=== PATIENT | male | born 1980 | race Caucasian/White ===

== ENCOUNTER 2022-04-10 05:52 | Emergency (ER) | payer SELFPAY ==
[~2022-04-10] VITALS: Ht 175.2 cm; Wt 83.1 kg
--- NOTE | 2022-04-10 06:11 | ED Cough/URI ---
General Chief Complaint: COVID19 Suspect/Confirmed Stated Complaint: FEVER,COUGH Source: patient Exam Limitations: no limitations History of Present Illness Date Seen by Provider: Apr 10, 2022 Time Seen by Provider: 05:58 Initial Comments 42-year-old male with no pertinent past medical history coming in due to 2 days of cough, sore throat, and fever. Please add a fever just before he came and took 2 Tylenol 20 minutes ago. Denies any chest pain, shortness of breath, abdominal pain, nausea, vomiting, diarrhea, focal weakness or numbness, rash, headache, vision changes, neck stiffness, or any other concerns. Eating and drinking okay. Up-to-date on vaccines, has had a COVID booster. Allergies and Home Medications Allergies Coded Allergies: No Known Drug Allergies (Unverified , 04/10/22) Patient Home Medication List Home Medication List Reviewed: Yes No Active Prescriptions or Reported Meds Review of Systems Review of Systems Constitutional: fever EENTM: nose congestion Respiratory: cough Cardiovascular: No chest pain Gastrointestinal: No abdominal pain Genitourinary: no symptoms reported Musculoskeletal: no symptoms reported Skin: no symptoms reported Psychiatric/Neurological: No Symptoms Reported Hematologic/Lymphatic: No Symptoms Reported Immunological/Allergic: no symptoms reported All Other Systems Reviewed Negative Unless Noted: Yes Past Ttmvxas-Reztbu-Krbhbw Hx Patient Social History Tobacco Use?: Yes Tobacco type used: Cigarettes Past Medical History Surgeries: Yes Orthopedic Physical Exam Vital Signs - First Documented 04/10/22 06:01 Temp 37.5 Pulse 94 Resp 20 B/P (MAP) 138/78 (98) Pulse Ox 98 O2 Delivery Room Air Capillary Refill : Height: '" Weight: lbs. oz. kg; BMI Method: General Appearance: WD/WN, no apparent distress Eyes: Bilateral Eye Normal Inspection HEENT: PERRL/EOMI, TMs normal, pharyngeal erythema; No tonsillar exudate Neck: non-tender, full range of motion, supple, normal inspection Respiratory: chest non-tender, lungs clear, normal breath sounds, no respiratory distress, no accessory muscle use Cardiovascular: regular rate, rhythm, no edema, no murmur Gastrointestinal: normal bowel sounds, non tender, soft; No guarding, No rebound Extremities: normal range of motion, non-tender, normal inspection, no pedal edema, no calf tenderness, normal capillary refill Neurologic/Psychiatric: no motor/sensory deficits, alert, normal mood/affect Skin: normal color, warm/dry Lymphatic: no adenopathy Progress/Results/Core Measures Suspected Sepsis SIRS Temperature: Pulse: Respiratory Rate: Blood Pressure / Mean: Results/Orders Lab Results Laboratory Tests Test 04/10/22 06:12 04/10/22 06:14 Range/Units Group A Streptococcus Screen NEGATIVE NEGATIVE My Orders Orders - MARTHA RAYMOND MD Rapid Strep A Screen (04/10/22 06:07) Influenza A And B By Pcr (04/10/22 06:07) Covid 19 Inhouse Test (04/10/22 06:07) Vital Signs/I&O 04/10/22 06:01 Temp 37.5 Pulse 94 Resp 20 B/P (MAP) 138/78 (98) Pulse Ox 98 O2 Delivery Room Air Capillary Refill : Progress Note : Progress Note 42-year-old male presenting for sore throat, cough, loss of smell, and fever. ABCs were intact and vitals were stable on presentation. Physical exam reassuring including he is very well-appearing. Viral testing obtained as well as strep throat. Strep that is negative him the viral testing is pending. I will if he stable for discharge with outpatient follow-up. He was sent home with strict return precautions. Departure Impression Primary Impression: Influenza-like symptoms Disposition: HOME, SELF-CARE Condition: Stable Departure-Patient Inst. Decision time for Depature: 06:50 Referrals: [facility] Patient Instructions: VIRAL RESP ILLNESS-ADULT Add. Discharge Instructions: You do have a viral illness which unfortunately antibiotics will not help with. Continue to take ibuprofen 600 mg every 6 hours as needed for fever or pain. You can also take DayQuil/NyQuil. If you choose not to take that combination, you can just take Tylenol extra strength for the fever and body aches as well. Try to keep up with fluids, educated not to eat as much when you are sick like this. Get plenty of rest. Follow-up with your regular doctor back home if not improving. If you do want to move down here, you can follow-up with the [facility] who is numbers in this paperwork. Scripts No Active Prescriptions or Reported Meds Work/School Note: Work Release Form Date Seen in the Emergency Department: Apr 10, 2022 Return to Work: Apr 12, 2022 Restrictions: Return-No Fever (24hrs) MARTHA RAYMOND MD Apr 10, 2022 06:11
[2022-04-10 06:46] VITALS: BP 138/78
== END 2022-04-10 06:46 | disposition home or self-care (01) ==
LOC: ER FS 05:56
DX: J02.9 Acute pharyngitis, unspecified (principal); R50.9 Fever, unspecified; R05.9 Cough, unspecified; R43.9 Unspecified disturbances of smell and taste; F17.210 Nicotine dependence, cigarettes, uncomplicated; Z20.822 Contact with and (suspected) exposure to COVID-19
CPT/HCPCS: 87430; 87636; 99283